=== PATIENT | female | born 2000 | race African-American/Black ===

== ENCOUNTER 2019-01-20 17:52 | Emergency (ER) | payer SELFPAY ==
[~2019-01-20] VITALS: Ht 160 cm; Wt 95.3 kg
[2019-01-20 18:26] VITALS: BP 128/76
[2019-01-20] MEDS ORDERED: diphenhydrAMINE HCL 25 MG CAPSULE PO ONE (18:45)
[2019-01-20] MEDS ORDERED: HYDROCORTISONE 1% TOPICAL OINTMENT 30GM TUBE. TP ONE (18:45)
--- NOTE | 2019-01-20 18:50 | PHYS DOC ---
Past Medical History Past Medical History: Asthma Past Surgical History: No Surgical History Alcohol Use: None Drug Use: None Adult General Chief Complaint Chief Complaint: INSECT BITE HPI HPI 18-year-old female presents to ER via POV for complaints of left forearm itching and burning with blister. Patient had concerns for insect bite. She reports she did not have the wound last night. She denies seeing any insects. Patient denies taking any gnyu-pdl-wglmcwd medications for symptoms. Patient denies throat pain or swelling, shortness of air, or chest pain/tightness. Review of Systems Review of Systems Constitutional: Denies fever or chills [] Eyes: Denies change in visual acuity, redness, or eye pain [] HENT: Denies nasal congestion or sore throat [] Respiratory: Denies cough or shortness of breath [] Cardiovascular: No additional information not addressed in HPI [] GI: Denies abdominal pain, nausea, vomiting, bloody stools or diarrhea [] : Denies dysuria or hematuria [] Musculoskeletal: Denies back pain or joint pain [] Integument: Denies rash or skin lesions [] Neurologic: Denies headache, focal weakness or sensory changes [] Endocrine: Denies polyuria or polydipsia [] All other systems were reviewed and found to be within normal limits, except as documented in this note. Current Medications Current Medications Current Medications Medications (Trade) Dose Ordered Sig/Paolo Start Time Stop Time Status Last Admin Dose Admin Diphenhydramine HCl (Benadryl) 25 mg 1X ONCE 01/20/19 18:45 01/20/19 18:46 DC 01/20/19 18:47 25 MG Hydrocortisone (Cortaid) 1 chele 1X ONCE 01/20/19 18:45 01/20/19 18:46 DC 01/20/19 18:47 1 CHELE Allergies Allergies Allergies Coded Allergies Type Severity Reaction Last Updated Verified No Known Drug Allergies 01/20/19 No Physical Exam Physical Exam Constitutional: Well developed, well nourished, no acute distress, non-toxic appearance. [] HENT: Normocephalic, atraumatic, bilateral external ears normal, oropharynx moist, no oral exudates, nose normal. [] Eyes: PERRLA, EOMI, conjunctiva normal, no discharge. [] Neck: Normal range of motion, no tenderness, supple, no stridor. [] Cardiovascular:Heart rate regular rhythm, no murmur [] Lungs & Thorax: Bilateral breath sounds clear to auscultation [] Abdomen: Bowel sounds normal, soft, no tenderness, no masses, no pulsatile masses. [] Skin: Warm, dry, no erythema, no rash. [] Back: No tenderness, no CVA tenderness. [] Extremities: No tenderness, no cyanosis, no clubbing, ROM intact, no edema. [] Neurologic: Alert and oriented X 3, normal motor function, normal sensory function, no focal deficits noted. [] Psychologic: Affect normal, judgement normal, mood normal. [] Current Patient Data Vital Signs Vital Signs Date Time Temp Pulse Resp B/P (MAP) Pulse Ox O2 Delivery O2 Flow Rate FiO2 01/20/19 18:26 98.3 58 16 128/76 (93) 98 Room Air 98.3 EKG EKG [] Radiology/Procedures Radiology/Procedures [] Course & Med Decision Making Course & Med Decision Making [] Dragon Disclaimer Dragon Disclaimer This electronic medical record was generated, in whole or in part, using a voice recognition dictation system. Departure Departure Impression: Primary Impression: Contact dermatitis Additional Impression: Allergic reaction Disposition: HOME, SELF-CARE Condition: STABLE Referrals: NO PCP (PCP) Patient Instructions: Contact Dermatitis Additional Instructions: It is uncertain as to what caused you're allergic reaction on your forearm. You can take jbuy-jcj-grqqkvy antihistamines such as Benadryl as directed on container. Topical veix-tnw-llxxjdj ointment such as hydrocortisone cream and/or Benadryl cream as directed on container. You can apply cool compress to affected area every 3-4 hours for 20-30 minutes at a time. If symptoms persist follow-up with your primary care physician for reevaluation and further care. Problem Qualifiers KELLY WRIGHT APRN Jan 20, 2019 18:50
== END 2019-01-20 19:12 | disposition home or self-care (01) ==
LOC: ER 17:52
DX: L23.9 Allergic contact dermatitis, unspecified cause (principal); J45.909 Unspecified asthma, uncomplicated
CPT/HCPCS: 99283; Q0163